=== PATIENT | female | born 1970 | race Two or more races ===

== ENCOUNTER 2018-02-26 18:07 | Emergency (ER) | payer MEDICAID ==
[~2018-02-26] VITALS: Ht 157.5 cm; Wt 74.8 kg
[2018-02-26] MEDS ORDERED: ASPIRIN 325 MG TABLET PO ONE (18:30)
[2018-02-26] MEDS ORDERED: ASPIRIN 325 MG TABLET ONE (18:41)
[2018-02-26 18:42] LABS: BASOPHILS % (AUTO) 0.6 % (0.0-2.0); HEMATOCRIT 38 % (33-45); HEMOGLOBIN 12.5 g/dL (11.5-14.8); LYMPHOCYTES # (AUTO) 2.3 /CMM (0.8-4.8); LYMPHOCYTES % (AUTO) 26.5 % (20.0-44.0); MEAN CORPUSCULAR HGB CONC 33 g/dl (31.0-36.0); MEAN CORPUSCULAR VOLUME 82 fL (82-100); MONOCYTES # (AUTO) 0.5 /CMM (0.1-1.30); NEUTROPHILS # (AUTO) 5.6 /CMM (1.8-8.9); NEUTROPHILS % (AUTO) 63.9 % (43.0-81.0); PLATELET COUNT (AUTO) 283 /CMM (150-450); RED BLOOD CELL COUNT(AUTO) 4.68 MIL/uL (4.0-5.2); WHITE BLOOD COUNT (AUTO) 8.8 K/uL (4.3-11.0)
--- NOTE | 2018-02-26 18:49 | NUR ---
PT BIB SELF C/O NON RADIATING CHEST PAIN SINCE LAST NIGHT. ALERT AND ORIENTED X 4, VERBALLY RESPONSIVE AND ABLE TO MAKE NEEDS KNOWN. ON ROOM AIR, BREATHING EVENLY AND UNLABORED. MONITOR APPLIED AND CHANGED TO GOWN. KEPT COMFORTABLE. WILL CONTINUE TO MONITOR ACCORDINGLY.
--- NOTE | 2018-02-26 18:50 | NUR ---
X-RAY TECH AT BEDSIDE FOR XRAY.
[2018-02-26 19:01] LABS: ALANINE AMINOTRANSFERASE 23 U/L (12-78); ALBUMIN 3.7 g/dL (3.4-5.0); ALKALINE PHOSPHATASE 90 U/L (46-116); ASPARTATE AMINOTRANSFERASE 13 U/L (15-37); BILIRUBIN,DIRECT 0.1 mg/dL (0.0-0.2); BILIRUBIN,TOTAL 0.3 mg/dL (0.2-1.0); CARBON DIOXIDE 30 mmol/L (21-32); CHLORIDE 99 mmol/L (98-107); CREATININE 0.5 mg/dL (0.6-1.3); GLUCOSE 91 mg/dL (74-106); POTASSIUM 4.1 mmol/L (3.5-5.1); SODIUM SERUM 136 mmol/L (136-145); TOTAL PROTEIN, SERUM 7.9 g/dL (6.4-8.2); UREA NITROGEN, BLOOD 8 mg/dL (7-18)
--- NOTE | 2018-02-26 19:10 | NUR ---
report given to [facility] nurse for josé manuel.
--- NOTE | 2018-02-26 19:15 | NUR ---
SALVADOR GONZALEZ AND MYSELF EVALUATED THE PT. PT C/O SLIGHT CP WITH EXPIRATION. PT IS ON THE MONITOR AND CONTINUOUS PULSE OX.
[2018-02-26] MEDS ORDERED: ACETAMINOPHEN ES 500 MG TABLET PO ONE (20:00)
[2018-02-26] MEDS ORDERED: ACETAMINOPHEN ES 500 MG TABLET ONE (20:27)
--- NOTE | 2018-02-26 21:36 | NUR ---
REPEAT EKG AND LAB DRAW IN PROGRESS AT THE BEDSIDE.
[2018-02-26 22:29] VITALS: BP 126/85
== END 2018-02-26 22:30 | disposition home or self-care (01) ==
LOC: ER 18:07
DX: R07.89 Other chest pain (principal); I10 Essential (primary) hypertension; E11.9 Type 2 diabetes mellitus without complications; Z98.890 Other specified postprocedural states
CPT/HCPCS: 36415; 71045; 80048; 80076; 83690; 84484 ×2; 85025; 85730; 93005 ×2; 99284; A4606; Z7610